=== PATIENT | male | born 1990 | race Two or more races ===

== ENCOUNTER 2021-06-29 20:01 | Emergency (ER) | payer OTHER ==
[~2021-06-29] VITALS: Ht 193 cm; Wt 97.5 kg
== END 2021-06-30 | disposition home or self-care (01) ==
LOC: ER 20:01
DX: T62.91XA Toxic effect of unspecified noxious substance eaten as food, accidental (unintentional), initial encounter (principal); R10.9 Unspecified abdominal pain; R11.10 Vomiting, unspecified; Y92.89 Other specified places as the place of occurrence of the external cause; J45.998 Other asthma; X58.XXXA Exposure to other specified factors, initial encounter